=== PATIENT | male | born 1970 | race American Indian/Alaskan Native ===

== ENCOUNTER 2019-10-07 11:27 | Emergency (ER) | payer SELFPAY ==
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
[2019-10-07] MEDS ORDERED: MORPHINE 4 MG/1 ML INJ IV ONE (11:56)
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
[2019-10-07 13:54] VITALS: BP 143/74
== END 2019-10-07 13:55 | disposition home or self-care (01) ==
LOC: ED 11:27
DX: S61.432A Puncture wound without foreign body of left hand, initial encounter (principal); W34.00XA Accidental discharge from unspecified firearms or gun, initial encounter; E11.9 Type 2 diabetes mellitus without complications; X58.XXXA Exposure to other specified factors, initial encounter; Y93.89 Activity, other specified; Y92.89 Other specified places as the place of occurrence of the external cause; Y99.8 Other external cause status
CPT/HCPCS: 29125; 73130; 82962; 96365; 96375; 99284; J0690; J2270